=== PATIENT | male | born 1960 | race Caucasian/White ===

== ENCOUNTER 2020-11-04 15:26 | Emergency (ER) | payer OTHER ==
[2020-11-04] MEDS ORDERED: Fluorescein Opthalmic Strip ONE (16:58)
[2020-11-04] MEDS ORDERED: Proparacaine 0.5% Opth 15 ML BOT ONE (16:58)
== END 2020-11-04 18:22 ==
LOC: ERS 15:26 → EEVIPCON 15:26 → ERS 18:22
DX: S05.02XA Injury of conjunctiva and corneal abrasion without foreign body, left eye, initial encounter (principal); I10 Essential (primary) hypertension; Z79.82 Long term (current) use of aspirin; Z79.899 Other long term (current) drug therapy; W22.8XXA Striking against or struck by other objects, initial encounter
CPT/HCPCS: 99283